=== PATIENT | male | born 1965 | race Caucasian/White ===

== ENCOUNTER 2019-01-11 10:28 | Emergency (ER) | payer SELFPAY, OTHER ==
[2019-01-11] MEDS: DIPHTH/TET/ACEL PERTUSS (ADULT) 0.5 ML VIAL IM* (13:18)
== END 2019-01-11 13:33 | disposition home or self-care (01) ==
LOC: FTE 13:33
DX: L97.529 Non-pressure chronic ulcer of other part of left foot with unspecified severity (principal); E13.42 Other specified diabetes mellitus with diabetic polyneuropathy; F17.210 Nicotine dependence, cigarettes, uncomplicated; Z79.01 Long term (current) use of anticoagulants; Z23 Encounter for immunization; Z79.4 Long term (current) use of insulin
CPT/HCPCS: 90471; 90715; 99283-25

== ENCOUNTER 2019-01-14 13:48 | Inpatient (IN) | payer MEDICAID ==
[2019-01-14 14:31] LABS: ADD MAN DIFF? NO
[2019-01-14] MEDS: SODIUM CHLORIDE 0.9% 1L BAG IV* (14:37)
[2019-01-14 14:40] LABS: ADD UMIC YES; UR ASCORBIC ACID NEGATIVE (NEGATIVE); UR BILIRUBIN (Dip) NEGATIVE (NEGATIVE); UR BLOOD (Dip) 2+ mg/dL (NEGATIVE); UR CLARITY CLEAR (CLEAR); UR COLOR YELLOW (YELLOW); UR GLUCOSE (Dip) 3+ mg/dL (NEGATIVE); UR KETONES (Dip) NEGATIVE (NEGATIVE); UR LEUKOCYTE ESTERASE (Dip) NEGATIVE Leu/ul (NEGATIVE); UR NITRITE (Dip) NEGATIVE (NEGATIVE); UR RBC 18 /HPF (0-5); UR SPECIFIC GRAVITY (Dip) 1.025 (1.003-1.030); UR TOTAL PROTEIN (Dip) 1+ mg/dl (NEGATIVE); UR UROBILINOGEN (Dip) NEGATIVE (NEGATIVE); UR WBC 1 /HPF (0-5)
[2019-01-14 14:47] LABS: BASOPHILS % 0.2 % (0.0-2.0); EOSINOPHILS % 0.3 % (0.0-7.0); HEMATOCRIT 30.6 % (42.0-52.0); HEMOGLOBIN 10.4 g/dl (14.0-18.0); LYMPHOCYTES # 1.1 10^3/ul (0.8-2.9); LYMPHOCYTES % 8.4 % (15.0-51.0); MEAN CORPUSCULAR VOLUME 85.2 fl (82.0-101.0); MEAN PLATELET VOLUME 10.4 fl (7.4-10.4); MONOCYTE # 0.8 10^3/ul (0.3-0.9); MONOCYTES % 5.9 % (0.0-11.0); NEUTROPHILS % 84.5 % (39.0-77.0); PLATELET COUNT 215 10^3/UL (140-415); RED BLOOD COUNT 3.59 10^6/ul (4.70-6.10); RED CELL DISTRIBUTION WIDTH 12.6 % (11.5-14.5)
[2019-01-14 14:54] LABS: INR 1.07; PT RATIO 1.1
[2019-01-14 14:55] LABS: ALANINE AMINOTRANSFERASE 24 IU/L (13-69); ALBUMIN 3.7 g/dl (3.3-4.9); ALBUMIN/GLOBULIN RATIO 1.08; ALKALINE PHOSPHATASE 89 IU/L (42-121); ANION GAP 7 (5-13); ASPARTATE AMINO TRANSFERASE 23 IU/L (15-46); BILIRUBIN,INDIRECT 0.5 mg/dl (0-1.1); BILIRUBIN,TOTAL 0.5 mg/dl (0.2-1.3); BLOOD UREA NITROGEN 15 mg/dl (7-20); CALCIUM 8.7 mg/dl (8.4-10.2); CARBON DIOXIDE 29 mmol/L (21-31); CHLORIDE 93 mmol/L (97-110); CREATININE 1.03 mg/dl (0.61-1.24); Estimated GFR > 60 mL/min (>60); PARTIAL THROMBOPLASTIN TIME 36.8 Sec (23.0-35.0); POTASSIUM 4.5 mmol/L (3.5-5.1); SODIUM 129 mmol/L (135-144); TOTAL PROTEIN 7.1 g/dl (6.1-8.1)
[2019-01-14 15:06] LABS: GLUCOSE 413 mg/dl (70-220)
[2019-01-14 15:07] LABS: C-REACTIVE PROTEIN 20.7 mg/dl (0.0-0.9)
[2019-01-14] MEDS: CEFEPIME 1GM/50 ML (PMX) 50 ML IVPB (15:56)
[2019-01-14 15:58] LABS: ERYTHROCYTE SEDIMENTATION RATE 60 mm/Hr (0-20)
[2019-01-14] MEDS: VANCOMYCIN 1 GM (PMX) 250 ML IVPB (16:55)
[2019-01-14] MEDS ORDERED: NACL 0.9% 3 ML SYG IV (17:30)
[2019-01-14] MEDS ORDERED: ONDANSETRON 4 MG INJ IV ×2 (17:30)
[2019-01-14] MEDS ORDERED: VANCOMYCIN IV PER PHARMACY XX (17:30)
[2019-01-14] MEDS ORDERED: ACETAMINOPHEN 325 MG TAB PO ×2 (17:30)
[2019-01-14] MEDS ORDERED: morphine 2 MG INJ IV (17:30)
[2019-01-14] MEDS ORDERED: DOCUSATE SODIUM 100 MG CAP PO (17:30)
[2019-01-14] MEDS ORDERED: MAGNESIUM HYDROXIDE 30ML CUP PO (17:30)
[2019-01-14 17:54] LABS: HEMOGLOBIN A1C 10.9 % (0-5.9)
[2019-01-14] MEDS ORDERED: PIPER-TAZO 3.375 GM IV (PMX) 100 ML IVPB (18:00)
[2019-01-14] MEDS ORDERED: GLUCOSE GEL 15 GRAM TUBE BUCCAL (19:00)
[2019-01-14] MEDS ORDERED: DEXTROSE 50% 50 ML SYRINGE IV ×2 (19:00)
[2019-01-14] MEDS ORDERED: GLUCOSE GEL 15 GRAM TUBE PO ×2 (19:00)
[2019-01-14] MEDS ORDERED: GLUCAGON 1 MG INJ IM (19:00)
[2019-01-14] MEDS: INSULIN ASPART [NOVOLOG] 3 ML PEN SC ×2 (19:30→20:45)
[2019-01-14] MEDS: SOD CHLORIDE 0.9% 1,000 ML IV (20:46)
[2019-01-14] MEDS: FAMOTIDINE 20 MG TAB PO (20:50)
[2019-01-14] MEDS: PIPER-TAZO 3.375 GM IV (PMX) 100 ML IVPB (21:12)
[2019-01-14] MEDS: INSULIN GLARGINE [LANTus] (100 UNITS/ML) SYG SC (22:54)
[2019-01-15] MEDS: SOD CHLORIDE 0.9% 1,000 ML IV (03:19)
[2019-01-15] MEDS: VANCOMYCIN 1 GM 250 ML IVPB ×2 (04:12→13:50)
[2019-01-15 06:26] LABS: ADD MAN DIFF? NO
[2019-01-15 06:33] LABS: BASOPHILS % 0.4 % (0.0-2.0); EOSINOPHILS # 0.2 10^3/ul (0.0-0.5); HEMATOCRIT 27.2 % (42.0-52.0); HEMOGLOBIN 9.4 g/dl (14.0-18.0); LYMPHOCYTES # 1.3 10^3/ul (0.8-2.9); LYMPHOCYTES % 15.8 % (15.0-51.0); MEAN CORPUSCULAR HEMOGLOBIN 29.2 pg (29.0-33.0); MEAN CORPUSCULAR HGB CONC 34.6 g/dl (32.0-37.0); MEAN CORPUSCULAR VOLUME 84.5 fl (82.0-101.0); MEAN PLATELET VOLUME 10.5 fl (7.4-10.4); MONOCYTE # 0.6 10^3/ul (0.3-0.9); NEUTROPHILS % 74.4 % (39.0-77.0); PLATELET COUNT 192 10^3/UL (140-415); RED BLOOD COUNT 3.22 10^6/ul (4.70-6.10); RED CELL DISTRIBUTION WIDTH 12.6 % (11.5-14.5)
[2019-01-15] MEDS: PIPER-TAZO 3.375 GM IV (PMX) 100 ML IVPB ×3 (06:43→22:08)
[2019-01-15] MEDS ORDERED: EPHEDrine SULFATE 50 MG/5 ML SYG (07:00)
[2019-01-15 07:17] LABS: ANION GAP 8 (5-13); BLOOD UREA NITROGEN 13 mg/dl (7-20); CALCIUM 8.1 mg/dl (8.4-10.2); CARBON DIOXIDE 26 mmol/L (21-31); CHLORIDE 103 mmol/L (97-110); CREATININE 0.83 mg/dl (0.61-1.24); Estimated GFR > 60 mL/min (>60); GLUCOSE 203 mg/dl (70-220); MAGNESIUM 2.1 mg/dl (1.7-2.5); PHOSPHORUS 2.5 mg/dl (2.5-4.9); POTASSIUM 3.7 mmol/L (3.5-5.1); SODIUM 137 mmol/L (135-144)
[2019-01-15] MEDS: FAMOTIDINE 20 MG TAB PO ×2 (08:39→20:55)
[2019-01-15] MEDS: INSULIN GLARGINE [LANTus] (100 UNITS/ML) SYG SC ×2 (08:39→20:56)
[2019-01-15] MEDS: INSULIN ASPART [NOVOLOG] 3 ML PEN SC ×4 (08:41→20:57)
[2019-01-15] MEDS: DEXTROSE 5%-0.45% NACL 1,000 ML IV (15:51)
[2019-01-15 16:07] LABS: IRON 15 ug/dl (35-150)
[2019-01-15 16:16] LABS: % IRON SATURATION 7 % SAT (22-52); TOTAL IRON BINDING CAPACITY 202 ug/dl (241-421)
[2019-01-15] MEDS ORDERED: PROPOFOL 20 ML (18:55)
[2019-01-15] MEDS ORDERED: LIDOCAINE 2% (SDV) 5 ML INJ (18:55)
[2019-01-15] MEDS ORDERED: LABETALOL HCL 20MG INJ IV (19:30)
[2019-01-15] MEDS ORDERED: METOCLOPRAMIDE 10 MG INJ IV (19:30)
[2019-01-15] MEDS ORDERED: DIPHENHYDRAMINE 50 MG INJ IV (19:30)
[2019-01-15] MEDS ORDERED: hydrALAzine 20 MG INJ IV (19:30)
[2019-01-15] MEDS ORDERED: FENTAnyl 50 MCG/ML VIAL IV ×3 (19:30)
[2019-01-15] MEDS ORDERED: MIDAZOLAM 1 MG/ML 2 ML INJ IV (19:30)
[2019-01-15] MEDS ORDERED: HYDROmorphONE 1 MG/5 ML IV SYRINGE IV ×3 (19:30)
[2019-01-15] MEDS ORDERED: MEPERIDINE 25 MG INJ IV (19:30)
[2019-01-15] MEDS ORDERED: OXYCODONE/ACETAMINOPHEN (5/325) TAB PO ×2 (19:30)
[2019-01-15] MEDS ORDERED: ONDANSETRON 4 MG INJ IV (19:30)
[2019-01-15] MEDS ORDERED: EPHEDrine SULFATE 50 MG/5 ML SYG IV (19:30)
[2019-01-16] MEDS: HYDROCODONE/APAP (5/325) TAB PO (02:17)
[2019-01-16 02:20] LABS: BLOOD UREA NITROGEN 12 mg/dl (7-20)
[2019-01-16 02:20] LABS: CREATININE 0.87 mg/dl (0.61-1.24)
[2019-01-16 02:28] LABS: VANCOMYCIN,TROUGH 7.6 ug/ml (10.0-20.0)
[2019-01-16] MEDS: VANCOMYCIN 1 GM 250 ML IVPB (02:39)
[2019-01-16] MEDS: PIPER-TAZO 3.375 GM IV (PMX) 100 ML IVPB ×3 (05:47→22:28)
[2019-01-16 06:22] LABS: ADD MAN DIFF? NO
[2019-01-16 06:27] LABS: WHITE BLOOD COUNT 8.8 10^3/ul (4.8-10.8)
[2019-01-16 06:27] LABS: BASOPHILS % 0.3 % (0.0-2.0); EOSINOPHILS # 0.3 10^3/ul (0.0-0.5); EOSINOPHILS % 3.2 % (0.0-7.0); HEMATOCRIT 29.5 % (42.0-52.0); LYMPHOCYTES # 1.4 10^3/ul (0.8-2.9); MEAN CORPUSCULAR HEMOGLOBIN 29.1 pg (29.0-33.0); MEAN CORPUSCULAR HGB CONC 33.9 g/dl (32.0-37.0); MEAN CORPUSCULAR VOLUME 85.8 fl (82.0-101.0); MEAN PLATELET VOLUME 10.5 fl (7.4-10.4); MONOCYTE # 0.5 10^3/ul (0.3-0.9); MONOCYTES % 6.1 % (0.0-11.0); NEUTROPHIL # 6.5 10^3/ul (1.6-7.5); NEUTROPHILS % 73.9 % (39.0-77.0); PLATELET COUNT 224 10^3/UL (140-415); RED BLOOD COUNT 3.44 10^6/ul (4.70-6.10); RED CELL DISTRIBUTION WIDTH 12.5 % (11.5-14.5)
[2019-01-16] MEDS: INSULIN ASPART [NOVOLOG] 3 ML PEN SC ×4 (08:00→20:46)
[2019-01-16] MEDS: FAMOTIDINE 20 MG TAB PO ×2 (08:11→20:46)
[2019-01-16] MEDS: INSULIN GLARGINE [LANTus] (100 UNITS/ML) SYG SC ×2 (08:12→20:47)
[2019-01-16] MEDS: VANCOMYCIN 750 MG (PMX) 250 ML IVPB ×2 (11:12→18:36)
[2019-01-17] MEDS: VANCOMYCIN 750 MG (PMX) 250 ML IVPB ×3 (03:14→19:47)
[2019-01-17] MEDS: PIPER-TAZO 3.375 GM IV (PMX) 100 ML IVPB ×3 (05:47→22:52)
[2019-01-17 06:37] LABS: ADD MAN DIFF? NO
[2019-01-17 06:41] LABS: BASOPHILS % 0.4 % (0.0-2.0); EOSINOPHILS # 0.3 10^3/ul (0.0-0.5); EOSINOPHILS % 3.3 % (0.0-7.0); HEMATOCRIT 32.2 % (42.0-52.0); HEMOGLOBIN 11.1 g/dl (14.0-18.0); LYMPHOCYTES # 1.8 10^3/ul (0.8-2.9); LYMPHOCYTES % 20.1 % (15.0-51.0); MEAN CORPUSCULAR HEMOGLOBIN 29.4 pg (29.0-33.0); MEAN CORPUSCULAR HGB CONC 34.5 g/dl (32.0-37.0); MEAN CORPUSCULAR VOLUME 85.2 fl (82.0-101.0); MEAN PLATELET VOLUME 9.8 fl (7.4-10.4); MONOCYTE # 0.6 10^3/ul (0.3-0.9); MONOCYTES % 6.3 % (0.0-11.0); NEUTROPHIL # 6.3 10^3/ul (1.6-7.5); NEUTROPHILS % 69.5 % (39.0-77.0); PLATELET COUNT 273 10^3/UL (140-415); RED BLOOD COUNT 3.78 10^6/ul (4.70-6.10); RED CELL DISTRIBUTION WIDTH 12.8 % (11.5-14.5)
[2019-01-17 06:41] LABS: WHITE BLOOD COUNT 9.1 10^3/ul (4.8-10.8)
[2019-01-17] MEDS: INSULIN ASPART [NOVOLOG] 3 ML PEN SC ×4 (08:00→20:37)
[2019-01-17] MEDS: FAMOTIDINE 20 MG TAB PO ×2 (08:10→20:39)
[2019-01-17] MEDS: FERROUS SULFATE (EC) 325 MG TAB PO (08:11)
[2019-01-17] MEDS: INSULIN GLARGINE [LANTus] (100 UNITS/ML) SYG SC ×2 (08:12→20:39)
[2019-01-17 10:29] LABS: VANCOMYCIN,TROUGH 13.3 ug/ml (10.0-20.0)
[2019-01-18] MEDS: VANCOMYCIN 750 MG (PMX) 250 ML IVPB ×2 (03:04→10:42)
[2019-01-18] MEDS: PIPER-TAZO 3.375 GM IV (PMX) 100 ML IVPB (06:16)
[2019-01-18 06:30] LABS: ADD MAN DIFF? NO
[2019-01-18 06:47] LABS: WHITE BLOOD COUNT 7.6 10^3/ul (4.8-10.8)
[2019-01-18 06:47] LABS: BASOPHIL # 0.1 10^3/ul (0.0-0.1); BASOPHILS % 0.7 % (0.0-2.0); EOSINOPHILS # 0.3 10^3/ul (0.0-0.5); EOSINOPHILS % 3.4 % (0.0-7.0); HEMOGLOBIN 12.1 g/dl (14.0-18.0); LYMPHOCYTES # 1.8 10^3/ul (0.8-2.9); LYMPHOCYTES % 23.7 % (15.0-51.0); MEAN CORPUSCULAR HEMOGLOBIN 29.2 pg (29.0-33.0); MEAN CORPUSCULAR HGB CONC 33.6 g/dl (32.0-37.0); MEAN CORPUSCULAR VOLUME 86.7 fl (82.0-101.0); MEAN PLATELET VOLUME 10.7 fl (7.4-10.4); MONOCYTE # 0.5 10^3/ul (0.3-0.9); MONOCYTES % 6.7 % (0.0-11.0); PLATELET COUNT 278 10^3/UL (140-415); POSITIVE DIFF @See below; RED BLOOD COUNT 4.15 10^6/ul (4.70-6.10); RED CELL DISTRIBUTION WIDTH 12.7 % (11.5-14.5)
[2019-01-18] MEDS: INSULIN ASPART [NOVOLOG] 3 ML PEN SC ×4 (08:00→21:11)
[2019-01-18] MEDS: FERROUS SULFATE (EC) 325 MG TAB PO (08:11)
[2019-01-18] MEDS: FAMOTIDINE 20 MG TAB PO ×2 (08:11→21:10)
[2019-01-18] MEDS: INSULIN GLARGINE [LANTus] (100 UNITS/ML) SYG SC ×2 (08:12→21:10)
[2019-01-18 08:19] LABS: ANISOCYTOSIS 1+ (0-0); BAND NEUTROPHILS #M 0.2 10^3/ul (0.0-0.6); BAND NEUTROPHILS % (M) 3 % (0-4); EOSINOPHILS % (M) 3 % (0-7); GIANT THROMBO% (M) 1 % (0-0); LYMPHOCYTES #M 1.9 10^3/ul (0.8-2.9); LYMPHOCYTES % (M) 25 % (15-51); MICROCYTOSIS 1+ (0-0); MONOCYTE #M 0.3 10^3/ul (0.3-0.9); MONOCYTES % (M) 5 % (0-11); MYELOCYTES #M 0.1 10^3/ul (0.0-0.0); MYELOCYTES % (M) 2 % (0-0); PLATELET ESTIMATE NORMAL; POLYCHROMASIA 2+ (0-0); REACTIVE LYMPHOCYTES #M 0.3 10^3/ul (0.0-0.0); REACTIVE LYMPHOCYTES% (M) 5 % (0-0); SEG NEUT #M 4.3 10^3/ul (1.6-7.5); SEGMENTED NEUTROPHILS (M) % 57 % (39-77); SMUDGE%M 4 % (0-0)
[2019-01-18] MEDS: SODIUM HYPOCHLORITE (1/40) 1 APPLIC BTL IRR (08:32)
[2019-01-18] MEDS: LIDOCAINE 1% (MPF) 5 ML VIAL SC (11:30)
[2019-01-18] MEDS: CEFTRIAXONE 1 GM/50 ML (PMX) 50 ML IVPB (14:03)
[2019-01-19 06:38] LABS: WHITE BLOOD COUNT 7.3 10^3/ul (4.8-10.8)
[2019-01-19 06:38] LABS: HEMATOCRIT 37.5 % (42.0-52.0); HEMOGLOBIN 12.6 g/dl (14.0-18.0); MEAN CORPUSCULAR HEMOGLOBIN 28.9 pg (29.0-33.0); MEAN CORPUSCULAR HGB CONC 33.6 g/dl (32.0-37.0); PLATELET COUNT 345 10^3/UL (140-415); POSITIVE DIFF @See below; RED BLOOD COUNT 4.36 10^6/ul (4.70-6.10); RED CELL DISTRIBUTION WIDTH 12.7 % (11.5-14.5)
[2019-01-19 06:42] LABS: ADD MAN DIFF? YES
[2019-01-19 07:04] LABS: ANION GAP 10 (5-13); BLOOD UREA NITROGEN 26 mg/dl (7-20); CALCIUM 9.8 mg/dl (8.4-10.2); CARBON DIOXIDE 31 mmol/L (21-31); CHLORIDE 97 mmol/L (97-110); Estimated GFR > 60 mL/min (>60); GLUCOSE 180 mg/dl (70-220); MAGNESIUM 2.1 mg/dl (1.7-2.5); PHOSPHORUS 4.4 mg/dl (2.5-4.9); POTASSIUM 4.9 mmol/L (3.5-5.1); SODIUM 138 mmol/L (135-144)
[2019-01-19 08:06] LABS: ANISOCYTOSIS 1+ (0-0); BAND NEUTROPHILS #M 0.1 10^3/ul (0.0-0.6); BAND NEUTROPHILS % (M) 2 % (0-4); EOSINOPHILS % (M) 1 % (0-7); LYMPHOCYTES #M 1.5 10^3/ul (0.8-2.9); LYMPHOCYTES % (M) 21 % (15-51); MONOCYTE #M 0.2 10^3/ul (0.3-0.9); MONOCYTES % (M) 3 % (0-11); PLATELET ESTIMATE NORMAL; POIKILOCYTOSIS 1+ (0-0); POLYCHROMASIA 1+ (0-0); REACTIVE LYMPHOCYTES #M 0.8 10^3/ul (0.0-0.0); REACTIVE LYMPHOCYTES% (M) 12 % (0-0); SEG NEUT #M 4.5 10^3/ul (1.6-7.5); SEGMENTED NEUTROPHILS (M) % 61 % (39-77); SMUDGE%M 8 % (0-0)
[2019-01-19] MEDS: FAMOTIDINE 20 MG TAB PO ×2 (08:48→21:32)
[2019-01-19] MEDS: FERROUS SULFATE (EC) 325 MG TAB PO (08:49)
[2019-01-19] MEDS: SODIUM HYPOCHLORITE (1/40) 1 APPLIC BTL IRR (08:49)
[2019-01-19] MEDS: INSULIN ASPART [NOVOLOG] 3 ML PEN SC ×4 (08:50→21:35)
[2019-01-19] MEDS: INSULIN GLARGINE [LANTus] (100 UNITS/ML) SYG SC ×2 (08:52→21:33)
[2019-01-19] MEDS: CEFTRIAXONE 1 GM/50 ML (PMX) 50 ML IVPB (12:44)
[2019-01-20 05:36] LABS: ADD MAN DIFF? NO
[2019-01-20 05:41] LABS: BASOPHIL # 0.1 10^3/ul (0.0-0.1); BASOPHILS % 0.6 % (0.0-2.0); EOSINOPHILS # 0.2 10^3/ul (0.0-0.5); EOSINOPHILS % 2.4 % (0.0-7.0); HEMATOCRIT 36.4 % (42.0-52.0); LYMPHOCYTES # 2.1 10^3/ul (0.8-2.9); LYMPHOCYTES % 25.8 % (15.0-51.0); MEAN CORPUSCULAR HEMOGLOBIN 28.6 pg (29.0-33.0); MEAN CORPUSCULAR VOLUME 86.9 fl (82.0-101.0); MEAN PLATELET VOLUME 9.8 fl (7.4-10.4); MONOCYTE # 0.4 10^3/ul (0.3-0.9); MONOCYTES % 5.3 % (0.0-11.0); NEUTROPHIL # 5.2 10^3/ul (1.6-7.5); NEUTROPHILS % 65.3 % (39.0-77.0); PLATELET COUNT 355 10^3/UL (140-415); RED BLOOD COUNT 4.19 10^6/ul (4.70-6.10); RED CELL DISTRIBUTION WIDTH 12.6 % (11.5-14.5)
[2019-01-20 05:46] LABS: ANION GAP 9 (5-13); BLOOD UREA NITROGEN 32 mg/dl (7-20); CALCIUM 9.9 mg/dl (8.4-10.2); CARBON DIOXIDE 32 mmol/L (21-31); CHLORIDE 99 mmol/L (97-110); Estimated GFR > 60 mL/min (>60); GLUCOSE 133 mg/dl (70-220); MAGNESIUM 2.1 mg/dl (1.7-2.5); PHOSPHORUS 4.4 mg/dl (2.5-4.9); POTASSIUM 4.9 mmol/L (3.5-5.1); SODIUM 140 mmol/L (135-144)
[2019-01-20] MEDS: INSULIN ASPART [NOVOLOG] 3 ML PEN SC ×4 (08:00→21:22)
[2019-01-20] MEDS: FERROUS SULFATE (EC) 325 MG TAB PO (08:38)
[2019-01-20] MEDS: FAMOTIDINE 20 MG TAB PO ×2 (08:38→21:16)
[2019-01-20] MEDS: SODIUM HYPOCHLORITE (1/40) 1 APPLIC BTL IRR (08:39)
[2019-01-20] MEDS: INSULIN GLARGINE [LANTus] (100 UNITS/ML) SYG SC ×2 (08:41→20:04)
[2019-01-20] MEDS: CEFTRIAXONE 1 GM/50 ML (PMX) 50 ML IVPB (12:23)
[2019-01-21 07:13] LABS: ADD MAN DIFF? NO
[2019-01-21 07:14] LABS: WHITE BLOOD COUNT 8.3 10^3/ul (4.8-10.8)
[2019-01-21 07:14] LABS: BASOPHIL # 0.1 10^3/ul (0.0-0.1); BASOPHILS % 0.7 % (0.0-2.0); EOSINOPHILS # 0.2 10^3/ul (0.0-0.5); EOSINOPHILS % 2.4 % (0.0-7.0); HEMOGLOBIN 12.1 g/dl (14.0-18.0); LYMPHOCYTES # 2.5 10^3/ul (0.8-2.9); LYMPHOCYTES % 30.7 % (15.0-51.0); MEAN CORPUSCULAR HEMOGLOBIN 28.6 pg (29.0-33.0); MEAN CORPUSCULAR HGB CONC 32.7 g/dl (32.0-37.0); MEAN CORPUSCULAR VOLUME 87.5 fl (82.0-101.0); MONOCYTE # 0.5 10^3/ul (0.3-0.9); NEUTROPHIL # 4.9 10^3/ul (1.6-7.5); NEUTROPHILS % 59.5 % (39.0-77.0); PLATELET COUNT 361 10^3/UL (140-415); RED BLOOD COUNT 4.23 10^6/ul (4.70-6.10); RED CELL DISTRIBUTION WIDTH 12.6 % (11.5-14.5)
[2019-01-21 07:31] LABS: ANION GAP 9 (5-13); BLOOD UREA NITROGEN 28 mg/dl (7-20); CALCIUM 9.7 mg/dl (8.4-10.2); CARBON DIOXIDE 29 mmol/L (21-31); CHLORIDE 99 mmol/L (97-110); CREATININE 0.88 mg/dl (0.61-1.24); Estimated GFR > 60 mL/min (>60); GLUCOSE 142 mg/dl (70-220); MAGNESIUM 2.1 mg/dl (1.7-2.5); PHOSPHORUS 4.2 mg/dl (2.5-4.9); POTASSIUM 4.4 mmol/L (3.5-5.1); SODIUM 137 mmol/L (135-144)
[2019-01-21] MEDS: INSULIN ASPART [NOVOLOG] 3 ML PEN SC ×4 (07:49→20:29)
[2019-01-21] MEDS: INSULIN GLARGINE [LANTus] (100 UNITS/ML) SYG SC ×2 (07:51→20:31)
[2019-01-21] MEDS: FERROUS SULFATE (EC) 325 MG TAB PO (08:28)
[2019-01-21] MEDS: FAMOTIDINE 20 MG TAB PO ×2 (08:28→20:30)
[2019-01-21] MEDS: SODIUM HYPOCHLORITE (1/40) 1 APPLIC BTL IRR (08:29)
[2019-01-21] MEDS: CEFTRIAXONE 1 GM/50 ML (PMX) 50 ML IVPB (12:41)
[2019-01-22] MEDS: INSULIN ASPART [NOVOLOG] 3 ML PEN SC ×2 (07:58→12:05)
[2019-01-22] MEDS: INSULIN GLARGINE [LANTus] (100 UNITS/ML) SYG SC (08:00)
[2019-01-22] MEDS: FERROUS SULFATE (EC) 325 MG TAB PO (08:38)
[2019-01-22] MEDS: FAMOTIDINE 20 MG TAB PO (08:38)
[2019-01-22] MEDS: SODIUM HYPOCHLORITE (1/40) 1 APPLIC BTL IRR (08:40)
[2019-01-22] MEDS: CEFTRIAXONE 1 GM/50 ML (PMX) 50 ML IVPB (13:09)
== END 2019-01-22 14:23 | disposition home health service (06) | DRG 854 ==
LOC: PP2 01-17 21:04 → E/R 13:48 → PP2 17:17
PROVIDERS: Internal Medicine
PROC: 0QBP0ZZ Excision of Left Metatarsal, Open Approach (ICD-10-PCS; principal; 2019-01-15 18:55)
PROC: 02H633Z Insertion of Infusion Device into Right Atrium, Percutaneous Approach (ICD-10-PCS; 2019-01-15 18:55)
DX: A41.9 Sepsis, unspecified organism (principal); E87.1 Hypo-osmolality and hyponatremia; M86.8X7 Other osteomyelitis, ankle and foot; L03.116 Cellulitis of left lower limb; L02.612 Cutaneous abscess of left foot; M87.275 Osteonecrosis due to previous trauma, left foot; E78.5 Hyperlipidemia, unspecified; S91.332A Puncture wound without foreign body, left foot, initial encounter; E11.42 Type 2 diabetes mellitus with diabetic polyneuropathy; E11.65 Type 2 diabetes mellitus with hyperglycemia; D50.9 Iron deficiency anemia, unspecified; Z91.14 Patient's other noncompliance with medication regimen; Z89.412 Acquired absence of left great toe
CPT/HCPCS: 36415; 36569; 71045; 73630-LT; 73718; 76937; 80048; 80053; 80202; 81001; 82565; 82962; 83036; 83540; 83605; 83735; 84100; 84520; 85025; 85610; 85651; 85730; 86140; 87040; 87070; 87086; 90686; 93005; 96365; 96375; 99291-25

== ENCOUNTER 2019-03-16 10:40 | Emergency (ER) | payer MEDICAID | END 2019-03-16 12:57 | disposition home or self-care (01) | LOC: E/R 10:40 | DX: Z45.2 Encounter for adjustment and management of vascular access device (principal); E11.9 Type 2 diabetes mellitus without complications; Z79.4 Long term (current) use of insulin | CPT/HCPCS: 99282 ==

== ENCOUNTER 2019-06-01 08:26 | Inpatient (IN) | payer OTHER, MEDICAID ==
[2019-06-01 08:52] LABS: ADD MAN DIFF? NO
[2019-06-01 08:57] LABS: BASOPHILS % 0.6 % (0.0-2.0); EOSINOPHILS # 0.1 10^3/ul (0.0-0.5); HEMATOCRIT 37.7 % (42.0-52.0); HEMOGLOBIN 12.6 g/dl (14.0-18.0); LYMPHOCYTES # 1.6 10^3/ul (0.8-2.9); LYMPHOCYTES % 23.1 % (15.0-51.0); MEAN CORPUSCULAR HEMOGLOBIN 28.6 pg (29.0-33.0); MEAN CORPUSCULAR HGB CONC 33.4 g/dl (32.0-37.0); MEAN CORPUSCULAR VOLUME 85.7 fl (82.0-101.0); MEAN PLATELET VOLUME 10.4 fl (7.4-10.4); MONOCYTE # 0.4 10^3/ul (0.3-0.9); NEUTROPHIL # 4.9 10^3/ul (1.6-7.5); PLATELET COUNT 202 10^3/UL (140-415); RED CELL DISTRIBUTION WIDTH 12.5 % (11.5-14.5)
[2019-06-01] MEDS: SOD CHLORIDE 0.9% 1,000 ML IV ×2 (09:07→11:50)
[2019-06-01] MEDS: CEFAZOLIN 1 GM/50 ML (PMX) 50 ML IVPB (09:12)
[2019-06-01 09:14] LABS: INR 0.99; PROTIME 13.2 Sec (11.9-14.9)
[2019-06-01 09:15] LABS: PARTIAL THROMBOPLASTIN TIME 31.6 Sec (23.0-35.0)
[2019-06-01 09:19] LABS: ALANINE AMINOTRANSFERASE 17 IU/L (13-69); ALBUMIN 4.1 g/dl (3.3-4.9); ALBUMIN/GLOBULIN RATIO 1.07; ALKALINE PHOSPHATASE 92 IU/L (42-121); AMYLASE 103 U/L (11-123); ANION GAP 10 (5-13); ASPARTATE AMINO TRANSFERASE 20 IU/L (15-46); BILIRUBIN,INDIRECT 0.4 mg/dl (0-1.1); BILIRUBIN,TOTAL 0.4 mg/dl (0.2-1.3); BLOOD UREA NITROGEN 23 mg/dl (7-20); CALCIUM 9.3 mg/dl (8.4-10.2); CARBON DIOXIDE 27 mmol/L (21-31); CHLORIDE 98 mmol/L (97-110); CREATININE 0.92 mg/dl (0.61-1.24); Estimated GFR > 60 mL/min (>60); LIPASE 75 U/L (23-300); POTASSIUM 4.7 mmol/L (3.5-5.1); SODIUM 135 mmol/L (135-144); TOTAL PROTEIN 7.9 g/dl (6.1-8.1)
[2019-06-01 09:21] LABS: GLUCOSE 418 mg/dl (70-220)
[2019-06-01 09:30] LABS: TROPONIN-I < 0.012 ng/ml (0.000-0.120)
[2019-06-01] MEDS ORDERED: INSULIN REGULAR, HUMAN 100 UNIT/1 ML 3ML VIAL IV (10:10)
[2019-06-01] MEDS ORDERED: GLUCOSE GEL 15 GRAM TUBE PO ×4 (10:30→17:30)
[2019-06-01] MEDS ORDERED: GLUCAGON 1 MG INJ IM ×2 (10:30→17:30)
[2019-06-01] MEDS ORDERED: DEXTROSE 50% 50 ML SYRINGE IV ×4 (10:30→17:30)
[2019-06-01] MEDS ORDERED: GLUCOSE GEL 15 GRAM TUBE BUCCAL ×2 (10:30→17:30)
[2019-06-01 13:30] LABS: ADD UMIC YES; UR ASCORBIC ACID NEGATIVE (NEGATIVE); UR BILIRUBIN (Dip) NEGATIVE (NEGATIVE); UR BLOOD (Dip) 1+ mg/dL (NEGATIVE); UR CLARITY CLEAR (CLEAR); UR COLOR STRAW (YELLOW); UR GLUCOSE (Dip) 3+ mg/dL (NEGATIVE); UR KETONES (Dip) NEGATIVE (NEGATIVE); UR LEUKOCYTE ESTERASE (Dip) NEGATIVE Leu/ul (NEGATIVE); UR NITRITE (Dip) NEGATIVE (NEGATIVE); UR RBC 4 /HPF (0-5); UR SPECIFIC GRAVITY (Dip) 1.011 (1.003-1.030); UR TOTAL PROTEIN (Dip) NEGATIVE (NEGATIVE); UR UROBILINOGEN (Dip) NEGATIVE (NEGATIVE); UR WBC 0 /HPF (0-5)
[2019-06-01 14:04] LABS: C-REACTIVE PROTEIN 0.9 mg/dl (0.0-0.9)
[2019-06-01 14:57] LABS: ERYTHROCYTE SEDIMENTATION RATE 26 mm/Hr (0-20)
[2019-06-01] MEDS: VANCOMYCIN 1 GM (PMX) 250 ML IVPB (15:43)
[2019-06-01] MEDS ORDERED: ACETAMINOPHEN 325 MG TAB PO ×2 (16:30→17:00)
[2019-06-01] MEDS ORDERED: ONDANSETRON 4 MG INJ IV (16:30)
[2019-06-01] MEDS ORDERED: NACL 0.9% 3 ML SYG IV (17:00)
[2019-06-01] MEDS: INSULIN ASPART [NOVOLOG] 3 ML PEN SC ×2 (17:56→21:00)
[2019-06-01] MEDS: PIPER-TAZO 3.375 GM IV (PMX) 100 ML IVPB (17:56)
[2019-06-01] MEDS ORDERED: VANCOMYCIN IV PER PHARMACY XX (18:00)
[2019-06-01] MEDS: INSULIN GLARGINE [LANTus] (100 UNITS/ML) SYG SC (20:42)
[2019-06-01] MEDS: VANCOMYCIN 750 MG (PMX) 250 ML IVPB (20:43)
[2019-06-01] MEDS: HEPARIN 5,000 UNIT/1 ML VIAL SC (21:00)
[2019-06-02] MEDS: INSULIN ASPART [NOVOLOG] 3 ML PEN SC ×5 (01:06→17:00)
[2019-06-02] MEDS: ACCU-CHEK XX (02:00)
[2019-06-02] MEDS ORDERED: PENDING SANTYL ORDER FOR WOUND CARE XX (02:30)
[2019-06-02] MEDS: PIPER-TAZO 3.375 GM IV (PMX) 100 ML IVPB ×4 (05:21→20:57)
[2019-06-02 05:53] LABS: ADD MAN DIFF? NO
[2019-06-02 05:59] LABS: WHITE BLOOD COUNT 6.5 10^3/ul (4.8-10.8)
[2019-06-02 05:59] LABS: BASOPHILS % 0.6 % (0.0-2.0); EOSINOPHILS # 0.1 10^3/ul (0.0-0.5); EOSINOPHILS % 1.5 % (0.0-7.0); HEMATOCRIT 36.6 % (42.0-52.0); HEMOGLOBIN 12.2 g/dl (14.0-18.0); LYMPHOCYTES # 1.3 10^3/ul (0.8-2.9); LYMPHOCYTES % 19.5 % (15.0-51.0); MEAN CORPUSCULAR HEMOGLOBIN 28.8 pg (29.0-33.0); MEAN CORPUSCULAR HGB CONC 33.3 g/dl (32.0-37.0); MEAN CORPUSCULAR VOLUME 86.5 fl (82.0-101.0); MONOCYTE # 0.4 10^3/ul (0.3-0.9); MONOCYTES % 5.7 % (0.0-11.0); NEUTROPHIL # 4.7 10^3/ul (1.6-7.5); NEUTROPHILS % 72.4 % (39.0-77.0); PLATELET COUNT 187 10^3/UL (140-415); RED BLOOD COUNT 4.23 10^6/ul (4.70-6.10); RED CELL DISTRIBUTION WIDTH 12.7 % (11.5-14.5)
[2019-06-02] MEDS: VANCOMYCIN 750 MG (PMX) 250 ML IVPB ×3 (06:05→21:52)
[2019-06-02 06:27] LABS: ALANINE AMINOTRANSFERASE 17 IU/L (13-69); ALBUMIN 3.6 g/dl (3.3-4.9); ALBUMIN/GLOBULIN RATIO 1.24; ALKALINE PHOSPHATASE 69 IU/L (42-121); ANION GAP 5 (5-13); ASPARTATE AMINO TRANSFERASE 17 IU/L (15-46); BILIRUBIN,INDIRECT 0.4 mg/dl (0-1.1); BILIRUBIN,TOTAL 0.4 mg/dl (0.2-1.3); BLOOD UREA NITROGEN 21 mg/dl (7-20); CARBON DIOXIDE 32 mmol/L (21-31); CHLORIDE 100 mmol/L (97-110); Estimated GFR > 60 mL/min (>60); GLUCOSE 224 mg/dl (70-220); MAGNESIUM 1.9 mg/dl (1.7-2.5); PHOSPHORUS 3.6 mg/dl (2.5-4.9); POTASSIUM 4.7 mmol/L (3.5-5.1); SODIUM 137 mmol/L (135-144); TOTAL PROTEIN 6.5 g/dl (6.1-8.1)
[2019-06-02 07:24] LABS: C-REACTIVE PROTEIN 0.7 mg/dl (0.0-0.9)
[2019-06-02] MEDS: HEPARIN 5,000 UNIT/1 ML VIAL SC ×2 (08:11→21:53)
[2019-06-02] MEDS: INSULIN GLARGINE [LANTus] (100 UNITS/ML) SYG SC ×2 (08:35→20:00)
[2019-06-02] MEDS ORDERED: MIDAZOLAM 1 MG/ML 2 ML INJ (17:27)
[2019-06-02] MEDS ORDERED: EPHEDrine 25 MG/5 ML SYG (17:27)
[2019-06-02] MEDS ORDERED: FENTAnyl 50 MCG/ML VIAL (17:27)
[2019-06-02] MEDS ORDERED: LIDOCAINE 100 MG SYRINGE (17:27)
[2019-06-02] MEDS ORDERED: PROPOFOL 40 ML (17:27)
[2019-06-02] MEDS ORDERED: hydrALAzine 20 MG INJ IV (18:00)
[2019-06-02] MEDS ORDERED: METOCLOPRAMIDE 10 MG INJ IV (18:00)
[2019-06-02] MEDS ORDERED: ONDANSETRON 4 MG INJ IV (18:00)
[2019-06-02] MEDS ORDERED: LABETALOL HCL 20MG INJ IV (18:00)
[2019-06-02] MEDS ORDERED: HYDROmorphONE 1 MG/5 ML IV SYRINGE IV ×2 (18:00)
[2019-06-02] MEDS ORDERED: FENTAnyl 50 MCG/ML VIAL IV ×2 (18:00)
[2019-06-02] MEDS: POLYMYXIN B 500000 UNIT INJ (18:06)
[2019-06-02] MEDS: BACITRACIN 50000 UNITS INJ (18:06)
[2019-06-02] MEDS: BUPIVACAINE 0.5% (SDV) 30 ML INJ (18:30)
[2019-06-02] MEDS: LIDOCAINE 1% (MPF) 30 ML INJ (18:30)
[2019-06-02 20:49] LABS: VANCOMYCIN,TROUGH 11.8 ug/ml (10.0-20.0)
[2019-06-02] MEDS: DEXTROSE 5%-0.45% NACL 1,000 ML IV ×2 (21:00)
[2019-06-03] MEDS: PIPER-TAZO 3.375 GM IV (PMX) 100 ML IVPB ×3 (00:25→12:17)
[2019-06-03] MEDS: ACCU-CHEK XX (02:00)
[2019-06-03] MEDS: DEXTROSE 5%-0.45% NACL 1,000 ML IV ×3 (04:36→22:50)
[2019-06-03] MEDS: VANCOMYCIN 750 MG (PMX) 250 ML IVPB (05:06)
[2019-06-03] MEDS: INSULIN ASPART [NOVOLOG] 3 ML PEN SC ×4 (07:57→20:41)
[2019-06-03] MEDS: INSULIN GLARGINE [LANTus] (100 UNITS/ML) SYG SC ×2 (07:59→20:40)
[2019-06-03] MEDS: HEPARIN 5,000 UNIT/1 ML VIAL SC (08:50)
[2019-06-03] MEDS: CEFTRIAXONE 1 GM/50 ML (PMX) 50 ML IVPB (13:39)
[2019-06-03] MEDS: VANCOMYCIN 1 GM 250 ML IVPB ×2 (14:27→22:39)
[2019-06-04] MEDS: ACCU-CHEK XX (02:18)
[2019-06-04] MEDS: VANCOMYCIN 1 GM 250 ML IVPB ×2 (06:27→14:20)
[2019-06-04] MEDS: INSULIN ASPART [NOVOLOG] 3 ML PEN SC ×4 (08:00→20:21)
[2019-06-04] MEDS: INSULIN GLARGINE [LANTus] (100 UNITS/ML) SYG SC ×2 (08:58→20:21)
[2019-06-04] MEDS: HEPARIN 5,000 UNIT/1 ML VIAL SC ×3 (10:17→23:52)
[2019-06-04] MEDS: CEFTRIAXONE 1 GM/50 ML (PMX) 50 ML IVPB (12:13)
[2019-06-04 14:03] LABS: VANCOMYCIN,TROUGH 19.3 ug/ml (10.0-20.0)
[2019-06-04] MEDS ORDERED: LIDOCAINE 1% (MPF) 5 ML VIAL SC (14:30)
[2019-06-04] MEDS: DEXTROSE 5%-0.45% NACL 1,000 ML IV (17:57)
[2019-06-04] MEDS: VANCOMYCIN 750 MG (PMX) 250 ML IVPB (23:51)
[2019-06-05] MEDS: ACCU-CHEK XX (02:11)
[2019-06-05 07:44] LABS: BLOOD UREA NITROGEN 19 mg/dl (7-20)
[2019-06-05 07:44] LABS: CREATININE 0.92 mg/dl (0.61-1.24)
[2019-06-05] MEDS: INSULIN ASPART [NOVOLOG] 3 ML PEN SC ×4 (08:00→20:39)
[2019-06-05] MEDS: INSULIN GLARGINE [LANTus] (100 UNITS/ML) SYG SC ×2 (08:07→20:38)
[2019-06-05] MEDS: VANCOMYCIN 750 MG (PMX) 250 ML IVPB ×2 (08:08→15:37)
[2019-06-05] MEDS: HEPARIN 5,000 UNIT/1 ML VIAL SC ×2 (08:39→20:38)
[2019-06-05] MEDS: CEFTRIAXONE 1 GM/50 ML (PMX) 50 ML IVPB (12:29)
[2019-06-05 23:51] LABS: VANCOMYCIN,TROUGH 14.3 ug/ml (10.0-20.0)
[2019-06-06] MEDS: VANCOMYCIN 750 MG (PMX) 250 ML IVPB ×3 (01:27→15:52)
[2019-06-06] MEDS: ACCU-CHEK XX (02:00)
[2019-06-06] MEDS: INSULIN ASPART [NOVOLOG] 3 ML PEN SC ×3 (08:00→17:24)
[2019-06-06] MEDS: INSULIN GLARGINE [LANTus] (100 UNITS/ML) SYG SC (08:13)
[2019-06-06] MEDS: HEPARIN 5,000 UNIT/1 ML VIAL SC (08:59)
[2019-06-06] MEDS: CEFTRIAXONE 1 GM/50 ML (PMX) 50 ML IVPB (12:48)
== END 2019-06-06 18:32 | disposition home health service (06) | DRG 623 ==
LOC: E/R 08:26 → PP2 16:06
PROVIDERS: Internal Medicine
PROC: 0HXNXZZ Transfer Left Foot Skin, External Approach (ICD-10-PCS; principal; 2019-06-02 17:00)
PROC: 0QBP0ZZ Excision of Left Metatarsal, Open Approach (ICD-10-PCS; 2019-06-02 17:00)
PROC: 0QBQ0ZZ Excision of Right Toe Phalanx, Open Approach (ICD-10-PCS; 2019-06-02 17:00)
PROC: 0HRMXK3 Replacement of Right Foot Skin with Nonautologous Tissue Substitute, Full Thickness, External Approach (ICD-10-PCS; 2019-06-02 17:00)
PROC: 02HV33Z Insertion of Infusion Device into Superior Vena Cava, Percutaneous Approach (ICD-10-PCS; 2019-06-02 17:34)
DX: E11.69 Type 2 diabetes mellitus with other specified complication (principal); M86.8X7 Other osteomyelitis, ankle and foot; E11.621 Type 2 diabetes mellitus with foot ulcer; L97.519 Non-pressure chronic ulcer of other part of right foot with unspecified severity; L97.529 Non-pressure chronic ulcer of other part of left foot with unspecified severity; E11.42 Type 2 diabetes mellitus with diabetic polyneuropathy; Z59.0 Homelessness; Z89.412 Acquired absence of left great toe; Z89.421 Acquired absence of other right toe(s); Z79.4 Long term (current) use of insulin
CPT/HCPCS: 36569; 71045; 73630; 73718; 80053; 80202; 81001; 82150; 82565; 82962; 83690; 83735; 84100; 84443; 84484; 84520; 85025; 85610; 85651; 85730; 86140; 87070; 87075; 87086; 87102; 87116; 93005; 96374; 96375; 97162; 97530; 97542; 99285-25